=== PATIENT | female | born 1990 ===

== ENCOUNTER 2018-09-28 18:19 | Emergency (ER) | payer OTHER ==
[~2018-09-28] VITALS: Ht 160 cm; Wt 154.2 kg
[2018-09-28] MEDS ORDERED: AIRBORNE EFFER1 EACH PO (22:23)
[2018-09-28] MEDS ORDERED: KETO10TA2 PO (22:23)
[2018-09-28] MEDS ORDERED: OSEL75CA PO (22:23)
[2018-09-28] MEDS ORDERED: TESSALON PERLE100 M1 PO (22:23)
== END 2018-09-28 22:30 | disposition home or self-care (01) ==
LOC: ER 18:19
DX: J11.1 Influenza due to unidentified influenza virus with other respiratory manifestations (principal); J06.9 Acute upper respiratory infection, unspecified